=== PATIENT | female | born 1960 | race African-American/Black ===

== ENCOUNTER → 2017-01-02 | Outpatient (CLI) | payer OTHER ==
[~2017-01-02] MED LIST: FLEXERIL10 MG PO; LISINOPRIL PO; VICODIN 5/1 TAB 5/50 PO
--- NOTE | ~2017-01-02 | CR126 ---
[facility]. [facility] A Service of [facility] & [facility] / [facility] RADIOLOGY TEXT RESULTS PATIENT: CHRISTAL RAMIREZ LOCATION: [place] : 56 UNIT #: [id number] AGE: [address]: Heather Ramires MD SEX: F ORDER DR: [id number] [place] [id number] O MR#: [id number] Acc #: [id number] NAME: CHRISTAL RAMIREZ : 1960 SEX: F STUDY DATE/TIME: 01/02/2017 18:12 UNIT: [facility] ROOM: STUDY DESCRIPTION: CR Foot Complete Min 3 View Lt Attending Physician: Heather Ramires M.D. Referring Physician: Heather Ramires M.D. Ordering Physician: Heather Ramires M.D. Primary Care Physician: Yvette Hirsch A.P.RLindaNLinda MEDICAL IMAGING REPORT This report is preliminary unless electronic signature is present. EXAM Left foot series, 01/02/17 HISTORY Inflammatory polyarthritis. FINDINGS AP, lateral and oblique radiographs of the left foot are presented. Normal bony mineralization. Alignment is normal. 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 No definite bony erosive changes are seen. No proliferative change is clearly seen. No soft tissue defect subcutaneous air or radiodense foreign body. Dictated by... Narinder Fuller M.D. THIS IS AN ELECTRONICALLY VERIFIED REPORT Narinder Fuller M.D. at 01/05/2017 9:16 AM Humberto TD: 01/04/2017 09:17 JOB #: [id number] MEDICAL IMAGING REPORT Page 1 of 1
--- NOTE | ~2017-01-02 | CR142 ---
[facility]. [facility] A Service of [facility] & [facility] RADIOLOGY TEXT RESULTS PATIENT: CHRISTAL RAMIREZ LOCATION: [place] : 56 UNIT #: [id number] AGE: [address]: Heather Ramires MD SEX: F ORDER DR: [id number] [place] [id number] O MR#: [id number] Acc #: [id number] NAME: CHRISTAL RAMIREZ : 1960 SEX: F STUDY DATE/TIME: 01/02/2017 18:12 UNIT: [facility] ROOM: STUDY DESCRIPTION: CR Hand Min 3 Views Rt Attending Physician: Heather Ramires M.D. Referring Physician: Heather Ramires M.D. Ordering Physician: Heather Ramires M.D. Primary Care Physician: Yvette Hirsch A.P.RLindaNLinda MEDICAL IMAGING REPORT This report is preliminary unless electronic signature is present. EXAM Right hand series 01/02/2017 HISTORY Inflammatory polyarthritis. Rheumatoid arthritis. Pain, swelling, numbness hands and right foot. FINDINGS AP, lateral and oblique radiographs of the right hand are presented. Normal bony mineralization. No fracture or malalignment. Joint spaces intact. Mild degenerative changes distal interphalangeal joint second digit. No soft tissue defect, subcutaneous air or radiodense foreign body. Dictated by... Narinder Fuller M.D. THIS IS AN ELECTRONICALLY VERIFIED REPORT Narinder Fuller M.D. at 01/05/2017 9:09 AM MEGHAN/brock TD: 01/04/2017 09:29 JOB #: [id number] MEDICAL IMAGING REPORT Page 1 of 1
--- NOTE | ~2017-01-02 | CR127 ---
[facility]. [facility] A Service of [facility] & [facility] RADIOLOGY TEXT RESULTS PATIENT: CHRISTAL RAMIREZ LOCATION: [place] : 56 UNIT #: [id number] AGE: [address]: Heather Raimres MD SEX: F ORDER DR: [id number] [place] [id number] O MR#: [id number] Acc #: [id number] NAME: CHRISTAL RAMIREZ : 1960 SEX: F STUDY DATE/TIME: 01/02/2017 18:12 UNIT: [facility] ROOM: STUDY DESCRIPTION: CR Foot Complete Min 3 View Rt Attending Physician: Heather Ramires M.D. Referring Physician: Heather Ramires M.D. Ordering Physician: Heather Ramires M.D. Primary Care Physician: Aj Ruiz.P.RMyrtle MEDICAL IMAGING REPORT This report is preliminary unless electronic signature is present. EXAM Right foot series, 01/02/2017. HISTORY Inflammatory polyarthritis 7-8 years ongoing. Rheumatoid arthritis. FINDINGS AP, lateral, and oblique radiographs of the right foot are presented. No traumatic fracture or malalignment. Generalized narrowing of interphalangeal joint spaces. Moderate degenerative change at the first metatarsophalangeal joint. There may be a small erosion along the dorsal/medial aspect of the head of the first metatarsal bone, best visualized on the oblique view. No acute-appearing soft tissue abnormality. Dictated by... Narinder Fuller M.D. THIS IS AN ELECTRONICALLY VERIFIED REPORT Narinder Fuller M.D. at 01/05/2017 9:09 AM MEGHAN/peterson TD: 01/04/2017 09:17 JOB #: [id number] MEDICAL IMAGING REPORT Page 1 of 1
--- NOTE | ~2017-01-02 | CR141 ---
[facility]. [facility] A Service of [facility] & [facility] RADIOLOGY TEXT RESULTS PATIENT: CHRISTAL RAMIREZ LOCATION: [place] : 56 UNIT #: [id number] AGE: [address]: Heather Ramires MD SEX: F ORDER DR: [id number] [address] [id number] [id number] O MR#: [id number] Acc #: [id number] NAME: CHRISTAL RAMIREZ : 1960 SEX: F STUDY DATE/TIME: 01/02/2017 18:12 UNIT: [facility] ROOM: STUDY DESCRIPTION: CR Hand Min 3 Views Lt Attending Physician: Heather Ramires M.D. Referring Physician: Heather Ramires M.D. Ordering Physician: Heather Ramires M.D. Primary Care Physician: Aj Ruiz.[email or web address] MEDICAL IMAGING REPORT This report is preliminary unless electronic signature is present. EXAM Left hand series, 01/02/2017 HISTORY Inflammatory polyarthritis. FINDINGS AP, lateral and oblique radiographs of the left hand are presented. No prior left hand series for comparison. Normal bony mineralization. Alignment is normal. No fracture. Well-corticated soft tissue calcification along radial aspect of third digit proximal interphalangeal joint. Nonspecific appearance. This may be a reflection of a remote trauma. It does not have the appearance of an acute fracture fragment. No erosive bony changes are clearly identified. No soft tissue defect, subcutaneous air, or radiodense foreign body. Dictated by... Narinder Fuller M.D. THIS IS AN ELECTRONICALLY VERIFIED REPORT Narinder Fuller M.D. at 01/05/2017 9:09 AM MEGHAN/aly TD: 01/04/2017 09:10 JOB #: [id number] MEDICAL IMAGING REPORT Page 1 of 1
== END | disposition home or self-care (01) ==
LOC: SRAD 18:01
DX: M06.4 Inflammatory polyarthropathy (principal)
CPT/HCPCS: 73130; 73630